=== PATIENT | male | born 1980 | race Caucasian/White ===

== ENCOUNTER 2018-02-04 11:03 | Emergency (ER) | payer BC, OTHER ==
--- OUTSIDE RECORDS SUMMARY | 2018-02-04 11:06 | XMS REPORT ---
:1980 Author Organization [employer] Care Team Providers Name Role Phone Marion, Caity Provider Role Unavailable Allergies, Adverse Reactions, Alerts Substance Reaction Event Type N.K.D.A. Info Not Available Non Drug Allergy Problems Problem Type Condition Code Onset Dates Condition Status Problem Anxiety F41.9 Active Problem Depression F32.9 Active Problem Allergic rhinitis J30.9 Active Assessment Allergic rhinitis J30.9 Active Problem Depression with anxiety F41.8 Active Assessment Depression with anxiety F41.8 Active Medications Medication Code Code Instructions Start End Status Dosage System Date Date Paroxetine HCl [facility] [id number] 20 MG Orally Active 1 tablet Once a day in the morning Results No Known Results Summary Purpose eClinicalWorks Submission
--- NOTE | 2018-02-04 11:47 | ER ---
Nurse's Notes [facility] Name: Claudio Valentine Age: 37 yrs Sex: Male : 1980 Arrival Date: 02/04/2018 Time: 11:07 Bed 20 Private MD: Caity Marion Diagnosis: Hemorrhoids and perianal venous thrombosis Presentation: 02/04 11:24 Presenting complaint: Patient states: blood in stool that began 2 days ago. Pt reports aa5 blood is bright red. Pt also reports diarrhea, denies N/V, denies abd pain. Transition of care: patient was not received from another setting of care. Onset of symptoms was January 2018. Risk Assessment: Do you want to hurt yourself or someone else? Patient reports no desire to harm self or others. Initial Sepsis Screen: Does the patient meet any 2 criteria? No. Patient's initial sepsis screen is negative. Does the patient have a suspected source of infection? No. Patient's initial sepsis screen is negative. Care prior to arrival: None. 11:24 Method Of Arrival: Ambulatory aa5 11:24 Acuity: ALBERT 3 aa5 Historical: - Allergies: 11:25 No Known Allergies; aa5 - PMHx: 11:25 Anxiety; Depression; aa5 - PSHx: 11:25 None; aa5 - Immunization history:: Adult Immunizations unknown. - Social history:: Smoking status: Patient/guardian denies using tobacco. - Ebola Screening: : No symptoms or risks identified at this time. Screenin:40 Abuse screen: Denies threats or abuse. Denies injuries from another. Nutritional jl7 screening: No deficits noted. Tuberculosis screening: No symptoms or risk factors identified. Fall Risk None identified. Assessment: 11:40 General: Appears in no apparent distress. uncomfortable, Behavior is calm, cooperative, jl7 appropriate for age. Pain: Complains of pain in rectum. Neuro: Level of Consciousness is awake, alert, obeys commands, Oriented to person, place, time, situation. Cardiovascular: Patient's skin is warm and dry. Respiratory: Airway is patent Respiratory effort is even, unlabored, Respiratory pattern is regular, symmetrical. GI: Reports rectal bleeding. : No signs and/or symptoms were reported regarding the genitourinary system. EENT: No signs and/or symptoms were reported regarding the EENT system. Derm: Skin is pink, warm \T\ dry. Musculoskeletal: No signs and/or symptoms reported regarding the musculoskeletal system. Vital Signs: 11:25 BP 130 / 90; Pulse 63; Resp 16 S; Temp 97.7(TE); Pulse Ox 97% on R/A; Weight 80.29 kg aa5 (R); Height 5 ft. 6 in. (167.64 cm) (R); Pain 0/10; 11:25 Body Mass Index 28.57 (80.29 kg, 167.64 cm) aa5 ED Course: 11:07 Patient arrived in ED. mr 11:08 Caity Marion MD is Private Physician. mr 11:24 Triage completed. aa5 11:25 Arm band placed on. aa5 11:28 Danielle Wright FNP-C is [facility]. kb 11:28 Tk Owen MD is Attending Physician. kb 11:40 Patient has correct armband on for positive identification. Placed in gown. Bed in low jl7 position. Call light in reach. Side rails up X 1. Pulse ox on. NIBP on. Warm blanket given. 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 jl7 11:57 Francois Jean, RN is Primary Nurse. jl7 12:03 Patient did not have IV access during this emergency room visit. jl7 Administered Medications: No medications were administered Outcome: 11:46 Discharge ordered by . kb 12:03 Discharged to home ambulatory, with family. jl7 12:03 Condition: stable 12:03 Discharge instructions given to patient, family, Instructed on discharge instructions, follow up and referral plans. medication usage, Demonstrated understanding of instructions, follow-up care, medications, Prescriptions given X 1. 12:03 Patient left the ED. jl7 Signatures: Danielle Wright FNP-C FNP-Ckb Lisset ZayasJudith, RN RN aa5 Francois Jean, ESTRELLA DE LA ROSA jl7
--- NOTE | 2018-02-04 11:47 | EDPHYS ---
Physician Documentation [facility] Name: Claudio Valentine Age: 37 yrs Sex: Male : 1980 Arrival Date: 02/04/2018 Time: 11:07 Bed 20 Private MD: Caity Marion ED Physician Tk Owen HPI: 02/04 11:45 This 37 yrs old Male presents to ER via Ambulatory with complaints of Rectal kb Bleeding. 11:45 The patient presents to the emergency department with bleeding from the rectum/anus, kb that is mild. Onset: The symptoms/episode began/occurred 1.5 day(s) ago. Context: the patient has no known special context relating to the rectal area complaint(s). Modifying factors: The symptoms are alleviated by nothing, The symptoms are aggravated by nothing. Associate signs and symptoms: Pertinent positives: lower GI bleeding, bright red, Pertinent negatives: abdominal pain, constipation, diarrhea, dysuria, fever, vomiting. The patient has not experienced similar symptoms in the past. The patient has not recently seen a physician. Historical: - Allergies: 11:25 No Known Allergies; aa5 - PMHx: 11:25 Anxiety; Depression; aa5 - PSHx: 11:25 None; aa5 - Immunization history:: Adult Immunizations unknown. - Social history:: Smoking status: Patient/guardian denies using tobacco. - Ebola Screening: : No symptoms or risks identified at this time. ROS: 11:43 Constitutional: Negative for fever, chills, and weight loss, Cardiovascular: Negative kb for chest pain, palpitations, and edema, Respiratory: Negative for shortness of breath, cough, wheezing, and pleuritic chest pain, Back: Negative for injury and pain, : Negative for injury, bleeding, discharge, and swelling, MS/Extremity: Negative for injury and deformity, Skin: Negative for injury, rash, and discoloration, Neuro: Negative for headache, weakness, numbness, tingling, and seizure. 11:43 Abdomen/GI: Positive for rectal bleeding, Negative for rectal pain. Exam: 11:43 Constitutional: This is a well developed, well nourished patient who is awake, alert, kb and in no acute distress. Head/Face: Normocephalic, atraumatic. Chest/axilla: Normal chest wall appearance and motion. Nontender with no deformity. No lesions are appreciated. Cardiovascular: Regular rate and rhythm with a normal S1 and S2. No gallops, murmurs, or rubs. Normal PMI, no JVD. No pulse deficits. Respiratory: Lungs have equal breath sounds bilaterally, clear to auscultation and percussion. No rales, rhonchi or wheezes noted. No increased work of breathing, no retractions or nasal flaring. Back: No spinal tenderness. No costovertebral tenderness. Full range of motion. Skin: Warm, dry with normal turgor. Normal color with no rashes, no lesions, and no evidence of cellulitis. MS/ Extremity: Pulses equal, no cyanosis. Neurovascular intact. Full, normal range of motion. Neuro: Awake and alert, GCS 15, oriented to person, place, time, and situation. Cranial nerves II-XII grossly intact. Motor strength 5/5 in all extremities. Sensory grossly intact. Cerebellar exam normal. Normal gait. 11:43 Abdomen/GI: Inspection: abdomen appears normal, Bowel sounds: normal, in all quadrants, Palpation: abdomen is soft and non-tender, in all quadrants, Rectal exam: rectal tone normal, Stool: grossly bloody, hemorrhoid(s), external, with associated bleeding, with inflammation, with pain, without thrombosis, swelling, that is moderate, tenderness, that is mild, the exam is chaperoned by the nurse. Vital Signs: 11:25 BP 130 / 90; Pulse 63; Resp 16 S; Temp 97.7(TE); Pulse Ox 97% on R/A; Weight 80.29 kg aa5 (R); Height 5 ft. 6 in. (167.64 cm) (R); Pain 0/10; 11:25 Body Mass Index 28.57 (80.29 kg, 167.64 cm) aa5 MDM: 11:28 Patient medically screened. kb 11:43 Data reviewed: vital signs, nurses notes. Data interpreted: Pulse oximetry: on room air kb is 97 %. Interpretation: normal. Counseling: I had a detailed discussion with the patient and/or guardian regarding: the historical points, exam findings, and any diagnostic results supporting the discharge/admit diagnosis, the need for outpatient follow up, a family practitioner, a general surgeon, to return to the emergency department if symptoms worsen or persist or if there are any questions or concerns that arise at home. Administered Medications: No medications were administered Disposition: 16:31 Co-signature as Attending Physician, Tk Owen MD. Disposition: 02/04/18 11:46 Discharged to Home. Impression: Hemorrhoids and perianal venous thrombosis. - Condition is Stable. - Discharge Instructions: Hemorrhoids, [id number]. - Prescriptions for Anusol- HC 2.5 % Rectal Cream - Apply to affected area 1 application by TOPICAL route every 8 hours As needed; 30 gram. - Medication Reconciliation Form, Thank You Letter, Antibiotic Education, Prescription Opioid Use form. - Follow up: Emergency Department; When: As needed; Reason: Worsening of condition. Follow up: Private Physician; When: 2 - 3 days; Reason: Recheck today's complaints, Continuance of care, Re-evaluation by your physician. Signatures: Dispatcher [employer] EDHI Danielle Wright, Judith Burris RN RN aa5 Francois Jean RN RN jl7 Tk Owen MD MD Corrections: (The following items were deleted from the chart) 11:41 11:33 IV Saline Lock ordered. kb kb 11:41 11:33 Labs collected and sent ordered. kb kb 11:59 11:33 BASIC METABOLIC PANEL+C.LAB.BRZ ordered. [facility] 11:59 11:33 CBC+H.LAB.BRZ ordered. [facility]HI 12:03 11:46 02/04/2018 11:46 Discharged to Home. Impression: Hemorrhoids and perianal venous jl7 thrombosis. Condition is Stable. Forms are Medication Reconciliation Form, Thank You Letter, Antibiotic Education, Prescription Opioid Use. Follow up: Emergency Department; When: As needed; Reason: Worsening of condition. Follow up: Private Physician; When: 2 - 3 days; Reason: Recheck today's complaints, Continuance of care, Re-evaluation by your physician. kb
== END 2018-02-04 12:03 | disposition home or self-care (01) ==
LOC: ER 11:03
DX: K64.9 Unspecified hemorrhoids (principal); K64.5 Perianal venous thrombosis
CPT/HCPCS: 99283